=== PATIENT | male | born 1990 | race Two or more races ===

== ENCOUNTER 2020-05-09 18:59 | Emergency (ER) | payer OTHER ==
[~2020-05-09] VITALS: Ht 165.1 cm; Wt 68.0 kg
[2020-05-09 19:15] VITALS: BP 101/79
--- NOTE | 2020-05-09 21:24 | Emergency Room Report ---
History of Present Illness General Chief Complaint: Fever Source: Patient Present Illness HPI States that for the past day he has had diarrhea, fever, fatigue and body aches. Denies cough or congestion or shortness of breath. He has had some COVID-19 contacts and presents during a COVID-19 pandemic. He has had multiple episodes of watery diarrhea. He denies vomiting. He states he has had some crampy abdominal pain but currently has no abdominal pain. He denies dysuria or hematuria. He did have a headache but that is since resolved. He denies neck pain or stiffness. He denies blurry vision. He denies weakness or tingling or numbness. He has no other complaints. 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 Patient History Past Medical History: see triage record, DM, asthma Social History: Denies: smoking, alcohol use, drug use Reviewed Nursing Documentation: PMH: Agreed; PSxH: Agreed Nursing Documentation-PMH Hx Cardiac Problems: No Hx Hypertension: No Hx Pacemaker: No Hx Asthma: Yes Hx COPD: No Hx Diabetes: Yes - Type 1 diabetes, diabetic retinopathy Hx Cancer: No Hx Gastrointestinal Problems: No Hx Dialysis: No History Of Psychiatric Problem: No Hx Neurological Problems: No Hx Cerebrovascular Accident: No Hx Seizures: No Review of Systems All Other Systems: negative except mentioned in HPI Physical Exam Vital Signs Date Time Temp Pulse Resp B/P (MAP) Pulse Ox O2 Delivery O2 Flow Rate FiO2 05/09/20 19:03 101.3 135 22 101/79 (86) 99 Room Air Sp02 EP Interpretation: reviewed, normal General Appearance: no apparent distress, alert, GCS 15, non-toxic Head: normocephalic, atraumatic Eyes: bilateral eye normal inspection, bilateral eye PERRL ENT: hearing grossly normal, normal pharynx, no angioedema, normal voice Neck: full range of motion, supple/symm/no masses Respiratory: no respiratory distress, no retraction, no accessory muscle use, speaking full sentences Cardiovascular #1: no edema, tachycardia Gastrointestinal: normal inspection, non-distended Rectal: deferred Musculoskeletal: normal inspection, normal range of motion, gait/station normal , non-tender Neurologic: alert, motor strength/tone normal, oriented x3, sensory intact, responsive, speech normal Psychiatric: judgement/insight normal, memory normal, mood/affect normal, no suicidal/homicidal ideation Skin: no rash, normal color Medical Decision Making Diagnostic Impression: Primary Impression: Fever Additional Impression: Viral syndrome ER Course This patient presents during the COVID-19 pandemic. The patient presents with a viral syndrome and this is likely COVID-19. He is diabetic. However he has continuous glucose monitoring system. He states his blood sugar has been running between 120 and 160. I was able to observe the continuous glucose monitor and his blood sugar currently was 160. He was given IV fluids. He was tachycardic during his ED course but he was also febrile and this significantly improved during his ED course with IV fluids. The patient's chest x-ray was clear. Overall the patient is well-appearing and nontoxic. I did obtain a COVID-19 test that is pending. I suspect the patient has a COVID-19 infection. He was instructed to use ibuprofen and acetaminophen in quarantine as he is contagious. The patient indicated understanding. He is given COVID-19 quarantining instructions and precautions. This patient was evaluated in the context of the global COVID-19 pandemic, which necessitated consideration that the patient might be at risk for infection with the [id number] virus that causes COVID-19. Institutional protocols and algorithms that pertain to the evaluation of patients at risk for COVID-19 and the state of rapid change based on information released by multiple regulatory bodies including the CDC and federal and state organizations. These policies and algorithms were followed during the patient' s care in the ED. Chest X-Ray Diagnostic Results Chest X-Ray Diagnostic Results : Chest X-Ray Ordered: Yes # of Views/Limited/Complete: 1 View Indication: Other EP Interpretation: Yes Interpretation: no consolidation, no effusion, no pneumothorax, no acute cardiopulmonary disease Impression: No acute disease Electronically Signed by: Zhane Nuñez DO Last Vital Signs Date Time Temp Pulse Resp B/P (MAP) Pulse Ox O2 Delivery O2 Flow Rate FiO2 05/09/20 19:15 101.3 135 22 101/79 99 Room Air Status: improved Disposition: HOME, SELF-CARE Condition: Improved Referrals: NOT CHOSEN [facility]/MD,REFERRING (PCP) Patient Instructions: Fever, Adult, [id number] Zhane Nuñez DO May 09, 2020 21:24
[2020-05-09 21:54] VITALS: BP 117/71
--- NOTE | 2020-05-10 14:19 | Diagnostic Imaging Report ---
Indication: Chest pain Technique: One view of the chest Comparison: none Findings: Lungs and pleural spaces are clear. Heart size is normal. Impression: No acute process
== END 2020-05-09 21:54 | disposition home or self-care (01) ==
LOC: EMR 19:30
DX: B34.9 Viral infection, unspecified (principal); R50.9 Fever, unspecified; E10.9 Type 1 diabetes mellitus without complications; E10.319 Type 1 diabetes mellitus with unspecified diabetic retinopathy without macular edema; Z88.1 Allergy status to other antibiotic agents
CPT/HCPCS: 71045; 99283